=== PATIENT | male | born 1995 | race Caucasian/White ===

== ENCOUNTER 2017-04-10 16:49 | Emergency (ER) | payer OTHER ==
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
--- NOTE | 2017-04-14 10:07 | ED MAR SUMMARY ---
..... Medication Administration Record [facility] [address], [place] [id number] Patient: JAYLA ELLIOTT Visit ID: [id number] 22y, M Weight: 124.7 kg Height/Length: 68 in BMI: 41.8 ALLERGIES: Sulfa Antibiotics
--- NOTE | 2017-04-14 10:07 | ED MAR SUMMARY ---
..... Medication Administration Record [facility] [address] [place], [place] [id number] Patient: JAYLA ELLIOTT Visit ID: [id number] 22y, M Weight: 124.7 kg Height/Length: 68 in BMI: 41.8 ALLERGIES: Sulfa Antibiotics
--- NOTE | 2017-04-14 10:07 | ED DISCHARGE INSTRUCTIONS ---
Patient: JAYLA ELLIOTT General Instructions [facility] VisitID: [id number] [place] [address] 22y, M Registration Date/Time: 04/10/2017 Single abrasion to the left index finger. INSTRUCTIONS Protect wound and keep wound area clean. Change dressing daily. You may wash wounds briefly, then dry. Apply bacitracin daily. Limit use of your hand today, until tomorrow. (Tetanus current per your report. No stitches needed. Keep finger clean and dry. Use antibiotic ointment and bandaid for 3-4 days-can then start leaving open unless doing "dirty" work.). Warnings: GENERAL WARNINGS: Return or contact your physician immediately if your condition worsens or changes unexpectedly, if not improving as expected, or if other problems arise. Follow-up: Follow up with your doctor as needed. Understanding of the discharge instructions verbalized by patient. ADDITIONAL INFORMATION Abrasions Abrasions are skin scrapes. Their treatment depends on how large and deep the abrasion is. Home Care: If you were given a bandage, change it once a day. If your bandage sticks to the wound, soak it in warm water until it loosens. Wash the area with soap and water to remove all the cream/ointment. You may do this in a sink, under a tub faucet or shower. Rinse off the soap and pat dry with a clean towel. Reapply cream/ointment according to your doctor's instructions. This will prevent infection and help prevent the bandage from sticking. Cover the wound with a fresh non-stick bandage (Telfa). Repeat steps 1 to 4 daily, or as directed by your doctor. If the bandage becomes wet or dirty, change it as soon as possible. You may use acetaminophen (Tylenol) or ibuprofen (Motrin, Advil) to control pain, unless another pain medicine was prescribed. [ NOTE : If you have chronic liver or kidney disease or ever had a stomach ulcer or GI bleeding, talk with your doctor before using these medicines.] Do not use ibuprofen in children under six months of age. Follow Up with your physician or this facility as directed by our staff. Most skin wounds heal within ten days. However, an infection may occur despite proper treatment. Therefore, look for the early signs of infection listed below. Get Prompt Medical Attention if any of the following occur: Increasing pain in the wound Increasing redness or swelling Pus coming from the wound Fever of 100.4F (38C) or higher, or as directed by your healthcare provider Abrasions Abrasions are skin scrapes. Their treatment depends on how large and deep the abrasion is. Home Care: If you were given a bandage, change it once a day. If your bandage sticks to the wound, soak it in warm water until it loosens. Wash the area with soap and water to remove all the cream/ointment. You may do this in a sink, under a tub faucet or shower. Rinse off the soap and pat dry with a clean towel. Reapply cream/ointment according to your doctor's instructions. This will prevent infection and help prevent the bandage from sticking. Cover the wound with a fresh non-stick bandage (Telfa). Repeat steps 1 to 4 daily, or as directed by your doctor. If the bandage becomes wet or dirty, change it as soon as possible. You may use acetaminophen (Tylenol) or ibuprofen (Motrin, Advil) to control pain, unless another pain medicine was prescribed. [ NOTE : If you have chronic liver or kidney disease or ever had a stomach ulcer or GI bleeding, talk with your doctor before using these medicines.] Do not use ibuprofen in children under six months of age. Follow Up with your physician or this facility as directed by our staff. Most skin wounds heal within ten days. However, an infection may occur despite proper treatment. Therefore, look for the early signs of infection listed below. Get Prompt Medical Attention if any of the following occur: Increasing pain in the wound Increasing redness or swelling Pus coming from the wound Fever of 100.4F (38C) or higher, or as directed by your healthcare provider You have been given the following additional information: Abrasion Abrasion Limit use of your hand today, until tomorrow. (Electronically signed by Rakel Hansen A.R.N.P. 04/10/2017 18:11)
--- NOTE | 2017-04-14 10:07 | ED MED RECONCILIATION SUMMARY ---
Patient: OLIVIA ELLIOTTIN Marlene Medication Reconciliation Report [facility] VisitID: [id number] [address] [place] [place] [address] 22y, M Registration Date/Time: 04/10/2017 Weight: 124.7 kg Height/Length: 68 in. BMI: 41.8 ALLERGIES: Sulfa Antibiotics The patient's Home Medications are listed below: NONE. The source(s) of the original Home Medication information: patient The following Medications were given to the patient in the Emergency Department: None. The following Medications were prescribed to the patient: None.
--- NOTE | 2017-04-14 10:07 | ED MED RECONCILIATION SUMMARY ---
Patient: OLIVIA ELLIOTTIN Marlene Medication Reconciliation Report [facility] VisitID: [id number] [address] [place] [address] 22y, M Registration Date/Time: 04/10/2017 Weight: 124.7 kg Height/Length: 68 in. BMI: 41.8 ALLERGIES: Sulfa Antibiotics The patient's Home Medications are listed below: NONE. The source(s) of the original Home Medication information: patient The following Medications were given to the patient in the Emergency Department: None. The following Medications were prescribed to the patient: None.
== END 2017-04-10 17:45 | disposition home or self-care (01) ==
LOC: ED SRH 16:49
DX: S60.411A Abrasion of left index finger, initial encounter (principal); W26.0XXA Contact with knife, initial encounter; Y93.9 Activity, unspecified; Y92.019 Unspecified place in single-family (private) house as the place of occurrence of the external cause; Y99.9 Unspecified external cause status; K21.9 Gastro-esophageal reflux disease without esophagitis; Z88.1 Allergy status to other antibiotic agents

== ENCOUNTER 2017-05-13 17:52 | Emergency (ER) | payer OTHER ==
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
--- NOTE | 2017-05-13 19:00 | ED MAR SUMMARY ---
..... Medication Administration Record Located Within [facility] [address], [place] [id number] Patient: JAYLA ELLIOTT Visit ID: [id number] 22y, M Weight: 123.3 kg Height/Length: 68 in BMI: 41.3 ALLERGIES: Sulfa Antibiotics
--- NOTE | 2017-05-13 19:00 | ED MAR SUMMARY ---
..... Medication Administration Record [facility] [address] [place], [place] [id number] Patient: JAYLA ELLIOTT Visit ID: [id number] 22y, M Weight: 123.3 kg Height/Length: 68 in BMI: 41.3 ALLERGIES: Sulfa Antibiotics
--- NOTE | 2017-05-13 19:00 | ED MED RECONCILIATION SUMMARY ---
Patient: JAYLA ELLIOTT Medication Reconciliation Report [facility] VisitID: [id number] [address] [place] [address] 22y, M Registration Date/Time: 05/13/2017 Weight: 123.3 kg Height/Length: 68 in. BMI: 41.3 ALLERGIES: Sulfa Antibiotics The patient's Home Medications are listed below: NONE. The source(s) of the original Home Medication information: Not obtained. The following Medications were given to the patient in the Emergency Department: None. The following Medications were prescribed to the patient: None.
--- NOTE | 2017-05-13 19:00 | ED MED RECONCILIATION SUMMARY ---
Patient: JAYLA ELLIOTT Medication Reconciliation Report [facility] VisitID: [id number] [address] [place] [address] 22y, M Registration Date/Time: 05/13/2017 Weight: 123.3 kg Height/Length: 68 in. BMI: 41.3 ALLERGIES: Sulfa Antibiotics The patient's Home Medications are listed below: NONE. The source(s) of the original Home Medication information: Not obtained. The following Medications were given to the patient in the Emergency Department: None. The following Medications were prescribed to the patient: None.
== END 2017-05-13 18:30 | disposition home or self-care (01) ==
LOC: ED SRH 17:52
DX: S00.83XA Contusion of other part of head, initial encounter (principal); V53.5XXA Driver of pick-up truck or van injured in collision with car, pick-up truck or van in traffic accident, initial encounter; Y93.89 Activity, other specified; Y92.410 Unspecified street and highway as the place of occurrence of the external cause; Y99.8 Other external cause status; K21.9 Gastro-esophageal reflux disease without esophagitis; F17.210 Nicotine dependence, cigarettes, uncomplicated; Z88.1 Allergy status to other antibiotic agents